=== PATIENT | male | born 1960 | race Caucasian/White ===

== ENCOUNTER 2016-10-12 21:23 | Emergency (ER) | payer OTHER ==
[~2016-10-12 21:23] MED LIST: AMOXICILLIN500 MG PO; AMOXIL500 MG PO; GOOD SENSE ASP325 MG PO; PERCOCET 325 MG1 TA2 PO
[2016-10-12 21:26] VITALS: BP 128/83
[2016-10-12] MEDS ORDERED: ULTRAM50 M1 PO (21:55)
[2016-10-12] MEDS ORDERED: IBUPROFEN600 M1 PO (21:55)
[2016-10-12] MEDS ORDERED: AMOXICILLIN875 M1 PO (21:55)
--- NOTE | 2016-10-12 21:57 | ED THROAT/DENTAL COMPLAINT ---
History of Present Illness General Chief Complaint: General Adult Stated Complaint: MOUTH SORE Source: patient, old records Exam Limitations: no limitations Vital Signs & Intake/Output Vital Signs & Intake/Output Vital Signs Date Time Temp Pulse Resp B/P Pulse O2 O2 Flow FiO2 Ox Delivery Rate 10/12 2125 99.9 100 22 128/83 98 Room Air Allergies Coded Allergies: NO KNOWN ALLERGIES (03/04/15) Reconcile Medications Amoxicillin 500 MG CAP 1 TAB PO TID DENTAL INFECTION Aspirin 325 MG TAB 1 TAB PO PRN PAIN (Reported) OXYCODONE HCL/ACETAMINOPHEN (Percocet 5-325 MG Tablet) 325 MG/5 MG TAB 1-2 TAB PO Q4-6 PRN PRN PAIN Core Measure Meds Pre-Hospital aspirin Triage Note: PER PT PAIN INSIDE MOUTH 8-03/18 PAIN SINCE YESTERDAY. NO KNOWN INJURY Triage Nurses Notes Reviewed? yes Onset: Last week Duration: day(s):, constant, continues in ED, getting worse Timing: recent history Severity: severe Modifying Factors: Worsens With: eating, movement. HPI: Family prior to admission patient complains of increasing pain in upper swollen gums from rotten teeth radiating to his cheek and nose. He denies fever chills nausea vomiting diarrhea abdominal pain chest pain shortness of breath headache dysuria bleeding. Past History Travel History Traveled to [place] past 21 day No Medical History Any Pertinent Medical History? none Neurological: NONE EENT: NONE Cardiovascular: NONE Respiratory: NONE Gastrointestinal: NONE Hepatic: NONE Renal: NONE Musculoskeletal: NONE Psychiatric: NONE Endocrine: NONE Blood Disorders: NONE Cancer(s): NONE SURGICAL SERVICES ASST/Reproductive: NONE Surgical History Surgical History: CYST ON SIDE OF FACE Psychosocial History What is your primary language [place] Tobacco Use: Current Daily Use Daily Tobacco Use Amount/Type: => 5 Cigarettes daily Family History Hx Contributory? No Review of Systems Review of Systems Constitutional: Reports: no symptoms. EENTM: Reports: see HPI, mouth pain, tooth pain. Respiratory: Reports: no symptoms. Cardiovascular: Reports: no symptoms. GI: Reports: no symptoms. Genitourinary: Reports: no symptoms. Musculoskeletal: Reports: no symptoms. Skin: Reports: no symptoms. Neurological/Psychological: Reports: no symptoms. Hematologic/Endocrine: Reports: no symptoms. Immunologic/Allergic: Reports: no symptoms. All Other Systems: Reviewed and Negative Physical Exam Physical Exam General Appearance: well developed/nourished, alert, awake, anxious, moderate distress, thin Head: atraumatic, normal appearance Eyes: Bilateral: normal appearance, PERRL, EOMI. Ears: Bilateral: canal normal, Tympanic normal. Nose: normal inspection Mouth/Throat: dental tenderness, gingivitis with decayed front teeth Neck: normal inspection, supple, full range of motion, trachea midline, lymphadenopathy (R), lymphadenopathy (L) Cardiovascular/Respiratory: normal breath sounds, normal peripheral pulses, regular rate/rhythm, no respiratory distress Back: normal inspection, normal range of motion Neurologic/Psych: no motor/sensory deficits, awake, alert, oriented x 3, normal gait, normal mood/affect Skin: intact, normal color, warm/dry Diagram Dental: 1) decayed and necrotic teeth with gingivitis Core Measures ACS in differential dx? No Severe Sepsis Present: No Septic Shock Present: No Progress Differential Diagnosis: carious tooth, odontogenic abscess, stomatitis/ gingivitis, tooth fracture Plan of Care: antibiotic analgesia Departure Departure Time of Disposition: 2153 Disposition: HOME OR SELF CARE Condition: Stable Clinical Impression Primary Impression: Dental caries extending into pulp Secondary Impressions: Gingivitis Referrals: PATIENT HAS NO PRIMARY CARE DR (PCP/Family) Departure Forms: Customer Survey General Discharge Information Prescriptions: Current Visit Scripts Amoxicillin 1 TAB PO BID #20 TAB Ibuprofen 1 TAB PO Q6PRN PRN pain #50 TAB with food Tramadol HCl (Ultram) 1-2 TAB PO Q6PRN PRN severe pain #30 TAB
== END 2016-10-12 22:13 ==
LOC: ERH 21:23
DX: K02.9 Dental caries, unspecified (principal); K05.10 Chronic gingivitis, plaque induced; Z72.0 Tobacco use